=== PATIENT | male | born 1980 | race Caucasian/White ===

== ENCOUNTER 2019-08-15 08:55 | Emergency (ER) | payer BC, SELFPAY ==
[2019-08-15 09:04] VITALS: BP 160/100; PULSE 79; RESP 16; TEMP 36.6; O2SAT 95; BMI 32.5
[2019-08-15] MEDS: PROPARACAINE 0.5% OPHTH SOL 1 DROPS EYE-BOTH (09:34)
--- NOTE | 2019-08-15 09:41 | ED.EYEPROB ---
HPI - Eye Problem General Chief complaint: Eye Problems Stated complaint: R eye something in it Time Seen by Provider: 08/15/19 09:24 Source: patient Mode of arrival: Ambulatory History of Present Illness HPI Narrative: Patient is a 39-year-old male who presents with right eye pain. He said he was sitting at his desk with a fan on when he thinks something flew into at either Dust or hair. He has some irritation he went to the eye wash station he tried to wash it out at work feels irritated. He put some Visine in no vision changes. chief complaint: eye pain and eye redness Onset (ago): hour(s) Onset description: sudden Location: right eye Eye Symptoms: redness, pain and foreign body sensation Place: work Related Data Allergies Allergy/AdvReac Type Severity Reaction Status Date / Time venom-honey bee Allergy Severe Anaphylaxis Verified 08/15/19 09:04 [BEE VENOM (HONEY BEE)] Review of Systems Review of Systems Narrative: GENERAL: Denies chills,fever HEENT: See HPI Denies throat pain RESPIRATORY: Denies dyspnea, cough, wheezing CARDIOVASCULAR: Denies chest pain, palpitations GASTROINTESTINAL: Denies nausea, vomiting MUSCULOSKELETAL: Denies extremity pain, injury SKIN: No rash, no laceration, no pruritus NEUROLOGIC: Denies weakness, dizziness, headache, numbness 8 point review of systems is negative except for those stated above and HPI PFSH Medical History Healthy adult (Acute) Family History (Updated 07/31/17 @ 00:00 by Conversion Provider) Father Age: 57 Hypertension Grandfather Heart disease Mother Age: 53 Mental health problem Social History Smoking Status: Never smoker Family History Father Age: 57 Hypertension Grandfather Heart disease Mother Age: 53 Mental health problem Social History Smoking Status: Never smoker Exam Initial Vital Signs Initial Vital Signs: Vital Signs Temperature 97.9 F 08/15/19 09:04 Pulse Rate 79 08/15/19 09:04 Respiratory Rate 16 08/15/19 09:04 Blood Pressure 160/100 H 08/15/19 09:04 Pulse Oximetry 95 08/15/19 09:04 GENERAL: Well-appearing, well-nourished and in no acute distress. EYES: EOMI, PAWAN Right eye was treated with proparacaine, stained with fluorescein. No dye uptake. No foreign body. CARDIOVASCULAR: peripheral pulses in tact, cap refill <2 sec RESPIRATORY: No respiratory distress, speaks in full sentences without difficulty EXTREMITIES: Normal range of motion, no clubbing or edema. Neurovascularly intact NEUROLOGICAL: Cranial nerves II through XII grossly intact. Normal gait and speech. SKIN: Warm, dry, no petechiae, no rashes or lesions. Course Orders Ordered: Discontinued Medications Proparacaine HCl (Parcaine 0.5% Ophth Rosina) 1 drops EYE-BOTH NOW ONE Stop: 08/15/19 09:29 Last Admin: 08/15/19 09:34 Dose: 1 drop Documented by: BTONER Vital Signs Vital signs: Vital Signs - 8 hr 08/15/19 09:04 08/15/19 10:13 Temperature 97.9 F Pulse Rate 79 67 Respiratory Rate 16 16 Blood Pressure 160/100 H 149/79 H Pulse Oximetry 95 99 MDM - Eye Problem MDM Narrative Medical decision making narrative: Eye was irrigated with normal saline. No sign of corneal abrasion no obvious foreign body identified. Feels better after proparacaine and irrigation. Discharge Plan Departure Patient Disposition: Home Clinical Impression: Foreign body of right eye Qualifiers: Encounter type: initial encounter Qualified Code(s): T15.91XA - Foreign body on external eye, part unspecified, right eye, initial encounter Discharge Date/Time: 08/15/19 10:14 Instructions: DI for Foreign Body in the Eye Activity Restrictions/Additional Instructions: *You have been diagnosed with right eye *What to do: Hopefully we got out whatever was in your eye. At recommend trying not to touch it. He may need to flush it out again later. Recommend not using Visine *Continue to take medications as directed *Follow up with your primary care provider in 2-3 days *Return to ER if you should have increasing pain, visual changes swelling or any new, worsening or concerning symptoms Referrals: Francisca Terry, [Primary Care Provider] - Stand Alone Forms: Work Release Note
--- NOTE | 2019-08-15 10:02 | PC.NURSE ---
pt states sitting in front of a fan, and felt like something went into eye. pt rubbed the eye, it became more irritated.
[2019-08-15 10:13] VITALS: BP 149/79; PULSE 67; RESP 16; O2SAT 99
== END 2019-08-15 10:14 | disposition home or self-care (01) ==
PROVIDERS: Emergency Provider Emergency Medicine; PCP Family Medicine
DX: T15.91XA Foreign body on external eye, part unspecified, right eye, initial encounter (principal)
CPT/HCPCS: 99282

== ENCOUNTER 2019-11-10 14:58 | Emergency (ER) | payer BC, SELFPAY ==
[2019-11-10 15:07] VITALS: BP 138/113; PULSE 99; RESP 16; TEMP 36.9; O2SAT 97; BMI 33.3
--- NOTE | 2019-11-10 15:13 | ED.TRAUMA ---
HPI - Trauma General Chief Complaint: Trauma Stated Complaint: fell off roof Time Seen by Provider: 11/10/19 15:13 Source: patient Mode of arrival: Wheelchair Limitations: no limitations History of Present Illness HPI narrative: This is a 39-year-old male who comes to the emergency department with complaint of right foot pain. Patient states he fell off the roof of his house. He states a 1 story roof. He states he fell onto his belly and sort of slid off and onto the ground landing on both his feet. And then fell sort of sideways. He states that he did not hit his head. He states doesn't have any pain in his left foot but doesn't the right. He states sort of on the medial side there's a little bit of redness and swelling. I states it's painful to weight bear. Patient denies any numbness. No tingling. He denies any hitting his head, he denies any neck or back pain. He denies any chest pain or shortness of breath. No abdominal pain. Denies any other injuries to his lower extremities. Patient states he scraped his wrist and has a small scrape on his leg but states they're quite minor. He states his tetanus is up-to-date. He denies any medical issues. Takes no medications regularly, denies blood thinners. He has had several orthopedic surgeries as well as tubes in his ears and appendectomy. Patient defers any pain medications. States that this happened about 45 minutes prior to arrival. Related Data Previous Rx's Medication Instructions Recorded tramadol [Ultram] 50 mg PO Q6H PRN #10 tab 11/10/19 Allergies Allergy/AdvReac Type Severity Reaction Status Date / Time venom-honey bee Allergy Severe Anaphylaxis Verified 08/15/19 09:04 [BEE VENOM (HONEY BEE)] Review of Systems Review of Systems ROS Unobtainable: All systems reviewed & are unremarkable except as noted in HPI and below Patient History Medical History (Updated 11/10/19 @ 16:12 by Luisa France DO) Healthy adult (Acute) Surgical History (Updated 11/10/19 @ 15:22 by Luisa France DO) Hx of appendectomy (Acute) Social History Smoking Status: Never smoker Smoking Status: Never smoker Substance Use Type: does not use Exam Narrative Exam Narrative: GEN: Patient appears in mild distress. HEAD: No evidence of trauma, no raccoon/Diop sign. NECK: Nontender, painless range of motion, trachea midline Negative Nexus criteria, there is no mid line tenderness, distracting injury, altered mental status, neuro deficit, recent EtOH. EYES: PERRLA, EOMI ENT: External inspection normal, trachea is midline, TM's are normal no hemotypanum, Nares are clear, no septal hematoma, no dental or oral injury, airway is normal and with normal occlusion, No bony tenderness RESP: Chest is nontender and has symmetric movement, no ecchymosis, breath sounds are normal no crackles, wheezes or rales CVS: Heart sounds are normal, no murmur noted, No JVD. ABG/GI: Nontender, soft, normal bowel sounds, no distention, no organomegaly, pelvic rock is negative. NEURO: Oriented AOx3, neuro is grossly intact, sensation and motor is normal all 4 extremities moving, cranial nerves II through XII are intact, GCS is 15 PSYCH: Normal mood and affect SKIN: Intact, warm and dry, no crepitus and without decubitus BACK: No CVA tenderness, no vertebral tenderness, no step-off's, no crepitus EXT: Patient has tenderness over the 3rd and 2nd metatarsals on the right foot, he also has some moderate tenderness over the talus. No calcaneal tenderness. Patient does not have any tenderness over the 1st metatarsal. Does have some erythema and slight swelling. No ecchymosis is noted. Patient has normal sensation throughout. Dorsalis pedis is 2+ on his right foot, cap refills less than 2 seconds. Hips are nontender, no pedal edema, normal color and temperature, normal joint testing in upper and lower extremities., 2+ pulses in all four extremities Initial Vital Signs Initial Vital Signs: Vital Signs Temperature 98.4 F 11/10/19 15:07 Pulse Rate 99 H 11/10/19 15:07 Respiratory Rate 16 11/10/19 15:07 Blood Pressure 138/113 H 11/10/19 15:07 Pulse Oximetry 97 11/10/19 15:07 Scores GCS Vangie coma scale eye opening: Spontaneous Combs coma scale verbal response: Orientated Vangie coma scale motor response: Obey commands Vangie coma scale total score: 15 Course Orders Ordered: ED Orders 11/10/19 15:13 XR foot RT min 3V Stat 11/10/19 15:19 XR ankle RT min 3V Stat Discontinued Medications Ibuprofen (Advil) 800 mg PO NOW ONE Stop: 11/10/19 15:52 Last Admin: 11/10/19 15:54 Dose: 800 mg Documented by: RICHARD Vital Signs Vital signs: Vital Signs - 8 hr 11/10/19 15:07 11/10/19 15:14 11/10/19 16:17 Temperature 98.4 F 98.4 F Pulse Rate 99 H 99 H 81 Respiratory Rate 16 16 Blood Pressure 138/113 H 138/113 H Blood Pressure [Right Arm] 135/85 Pulse Oximetry 97 97 97 MDM - Trauma Imaging Data right foot xray: Radiologist's impression: [address] [address] XRay Report Signed Patient: Venu Stoddard LMR#: [id number] : 1980Acct:[id number] Age/Sex: 39 / MDate of Service: 11/10/19 Loc: ED Accession Number: [id number] Procedure: XR foot RT min 3V Ordering Provider: Luisa France D.O. PROCEDURE: XR FOOT RT MIN 3V INDICATIONS: fall from roof TECHNIQUE: 3 views of the foot were acquired. COMPARISON: [facility], , XR ANKLE RT MIN 3V, 11/10/2019, 15:21. FINDINGS: Bones: No fractures or dislocations. No suspicious bony lesions. Soft tissues: No tibiotalar joint effusion. Achilles tendon appears normal. IMPRESSION: No displaced fractures are seen. Dictated by: Brien Hearn M.D. on 11/10/2019 at 14:45 Approved by: Brien Hearn M.D. on 11/10/2019 at 14:47 right ankle xray: Radiologist's impression: [address] [address] XRay Report Signed Patient: Venu Stoddard LMR#: [id number] : 1980Acct:[id number] Age/Sex: 39 / MDate of Service: 11/10/19 Loc: ED Accession Number: [id number] Procedure: XR ankle RT min 3V Ordering Provider: Luisa France D.O. PROCEDURE: XR ANKLE RT MIN 3V INDICATIONS: pain metatarsal/talus, fell off roof. TECHNIQUE: 3 views of the ankle were acquired. COMPARISON: [facility], , XR FOOT RT MIN 3V, 11/10/2019, 15:21. FINDINGS: Bones: No fractures or dislocations. Ankle mortise is normally aligned. No suspicious bony lesions. The talar dome demonstrates no lisbeth abnormality. Soft tissues: No tibiotalar joint effusion. Achilles tendon appears normal. IMPRESSION: No displaced fractures are seen on these plain films. If there is focal tenderness, or other clinical concern for a fracture not seen on these images in this patient with a given history of trauma, please consider a dedicated CT or a short-term followup plain film series (in 1-2 weeks) for further evaluation. Dictated by: Brien Hearn M.D. on 11/10/2019 at 14:47 Approved by: Brien Hearn M.D. on 11/10/2019 at 14:48 [facility] Narrative Medical decision making narrative: Patient has no obvious fractures on x-ray. He does have some point tenderness with the mechanism that could certainly cause fracture and plan for conservative management and follow-up outpatient with repeat imaging if patient is still having discomfort. Discussed with patient he is comfortable with the plan. Plan for ortho boot, crutches as needed. Short course of pain medication and ibuprofen Tylenol with RICE treatment. Discharge Plan Departure Patient Disposition: Home Clinical Impression: Acute pain of right foot Fall Qualifiers: Encounter type: initial encounter Qualified Code(s): W19.XXXA - Unspecified fall, initial encounter Discharge Date/Time: 11/10/19 16:41 Instructions: DI for Foot Sprain Activity Restrictions/Additional Instructions: Follow-up with primary care and/or orthopedic surgery in the next 7-10 days for recheck. There is potential for you to have a fracture that is not initially visualized on x-ray, I would recommend repeat imaging in 7-10 days if your symptoms have not totally resolved. Continue with ibuprofen up to 800 mg every 8 hours and/or Tylenol up to a 1000 mg every 8 hours as needed for pain. You may take ultram 1-2 tablets for breakthrough pain as needed. This medication can make you sleepy do not drive, perform hazardous activities or make any major decisions while taking it. You may weight bear as tolerated but if your continuing to have pain continue to use crutches. Splint Care: Keep splint clean and dry. Elevated affected body part to decrease swelling. OK to use ice pack on the affected body part. Use for 15-20 minutes each time, for 5-6x per day. If you develop worsening pain, numbness, tingling, discoloration of the affected body part, loosen the splint by loosening the CEDRIC wrap, and either see your doctor for an urgent re-assessment, or return to the Emergency Department. Return to the Emergency Department for any new or worsening symptoms. Prescriptions: New tramadol [Ultram] 50 mg tablet 50 mg PO Q6H PRN (Reason: pain) Qty: 10 RF: 0 Referrals: Alyssa Burton MD [Physician] - Francisca Terry DO [Primary Care Provider] -
[2019-11-10 15:14] VITALS: BP 138/113; PULSE 99; RESP 16; TEMP 36.9; O2SAT 97
--- NOTE | 2019-11-10 15:19 | DI.RAD.S_ITS ---
PROCEDURE: XR ANKLE RT MIN 3V INDICATIONS: pain metatarsal/talus, fell off roof. TECHNIQUE: 3 views of the ankle were acquired. COMPARISON: [facility], CR, XR FOOT RT MIN 3V, 11/10/2019, 15:21. FINDINGS: Bones: No fractures or dislocations. Ankle mortise is normally aligned. No suspicious bony lesions. The talar dome demonstrates no lisbeth abnormality. Soft tissues: No tibiotalar joint effusion. Achilles tendon appears normal. IMPRESSION: No displaced fractures are seen on these plain films. If there is focal tenderness, or other clinical concern for a fracture not seen on these images in this patient with a given history of trauma, please consider a dedicated CT or a short-term followup plain film series (in 1-2 weeks) for further evaluation. Dictated by: Brien Hearn M.D. on 11/10/2019 at 14:47 Approved by: Brien Hearn M.D. on 11/10/2019 at 14:48
[2019-11-10] MEDS: IBUPROFEN 400 MG TABLET 800 MG PO (15:54)
[2019-11-10 16:17] VITALS: BP 135/85; PULSE 81; O2SAT 97
== END 2019-11-10 16:41 | disposition home or self-care (01) ==
PROVIDERS: Emergency Provider Emergency Medicine; PCP Family Medicine
DX: M79.671 Pain in right foot (principal); W13.2XXA Fall from, out of or through roof, initial encounter
CPT/HCPCS: 36415; 73610; 73630; 99283; 99284

== ENCOUNTER → 2019-11-19 15:04 | Outpatient (CLI) | payer BC, SELFPAY ==
--- NOTE | 2019-11-19 15:09 | DI.RAD.S_ITS ---
PROCEDURE: XR FOOT RT MIN 3V INDICATIONS: injury after fall TECHNIQUE: 3 views of the foot were acquired. COMPARISON: [facility], CR, XR FOOT RT MIN 3V, 11/10/2019, 15:21. FINDINGS: Bones: No definite radiographic fractures or dislocations. No suspicious bony lesions. Cortical irregularity at the first TMT joint, in particular the medial aspect is technically age-indeterminate. This could reflect prior injury, potentially with Lisfranc ligament involvement although grossly unchanged. There is anatomic alignment. Diffuse midfoot and hindfoot degenerative spurring. Small posterior calcaneal spur. Soft tissues: No tibiotalar joint effusion. Achilles tendon appears normal. IMPRESSION: No definite fracture radiographically identified. If the patient's pain or other symptoms persist, consider further evaluation with MRI. Dictated by: Jim Fernandez M.D. on 11/19/2019 at 16:25 Approved by: Jim Fernandez M.D. on 11/19/2019 at 16:32
== END ==
PROVIDERS: PCP Family Medicine; Visit Provider Family Medicine
DX: M79.671 Pain in right foot (principal); S99.921A Unspecified injury of right foot, initial encounter; W19.XXXA Unspecified fall, initial encounter
CPT/HCPCS: 73630

== ENCOUNTER → 2019-11-28 17:20 | Outpatient (CLI) | payer BC, SELFPAY ==
--- NOTE | 2019-11-28 17:22 | DI.MRI.S_ITS ---
PROCEDURE: MR FOOT RT WO CON INDICATIONS: Persistent right foot pain, possible fracture TECHNIQUE: Noncontrast sagittal T1 spin echo and T2 fast spin echo with fat saturation, long-axis T1 spin echo and T2 fast spin echo with fat saturation, short-axis T1 spin echo and T2 fast spin echo with fat saturation through the forefoot. COMPARISON: [facility], CR, XR FOOT RT MIN 3V, 11/19/2019, 15:05. FINDINGS: Image quality: Excellent. Bones and joints: There is marrow edema involving the plantar aspect of second metatarsal base with a nondisplaced fractured fragment seen in plantar aspect of second metatarsal base. Fracture line is seen extending to second TMT joint space. Mild edema involving the distal portion of medial and middle cuneiforms are seen with no discrete fracture line identified. No other area of abnormal marrow signal. The sesamoid bones appear in expected positions, without internal edema. No metatarsophalangeal joint degeneration. No intraosseous lesions. Soft tissues: Soft tissue edema over the dorsal aspect of midfoot is seen particularly over the metatarsal bones. The visualized plantar foot muscles demonstrate normal signal and bulk. Visualized flexor and extensor tendons appear intact, without tenosynovitis. The distal insertions of the peroneus brevis and longus tendons appear intact. The principal Lisfranc ligament appears intact. No soft tissue ganglion cysts or bursal fluid collections. Sagittal images demonstrate no evidence for plantar plate tears. IMPRESSION: 1. Finding is suggestive of a small nondisplaced fracture involving plantar aspect of second metatarsal base with bony contusion and adjacent medial and middle cuneiforms distally. 2. Dorsal soft tissue swelling. Extensor and flexor tendons are grossly intact. Lisfranc ligament is intact. Dictated by: Rigo Mcnamara M.D. on 11/29/2019 at 12:30 Approved by: Rigo Mcnamara M.D. on 11/29/2019 at 12:46
== END ==
PROVIDERS: PCP Family Medicine; Visit Provider Family Medicine
DX: M79.671 Pain in right foot (principal); S90.31XA Contusion of right foot, initial encounter; M79.89 Other specified soft tissue disorders
CPT/HCPCS: 73718

== ENCOUNTER 2019-12-28 08:13 | Day surgery (SDC) | payer BC, SELFPAY ==
[2019-12-20 08:53] VITALS: BMI 33.3
[2019-12-28] VITALS (10 sets, daily range): BP systolic 115–148; BP diastolic 72–106; PULSE 54–77; RESP 9–20; TEMP 35.8–36.6; O2SAT 94–100; BMI 33.3
--- NOTE | 2019-12-28 | DI.RAD.S_ITS ---
PROCEDURE: XR FOOT RT MIN 3V INDICATIONS: ORIF RIGHT FOOT TECHNIQUE: 5 views of the foot were acquired. COMPARISON: [facility], , XR FOOT RT MIN 3V, 11/19/2019, 15:05. FINDINGS: Spot fluoroscopic images demonstrating screw fixation traversing the medial cuneiform and base of the second metatarsal. Hardware appears intact. Expected intraoperative alignment. Dictated by: Jim Fernandez M.D. on 12/28/2019 at 12:41 Approved by: Jim Fernandez M.D. on 12/28/2019 at 12:43
[2019-12-28] MEDS: LACTATED RINGERS 1,000 ML 100 ML IV (08:46)
--- NOTE | 2019-12-28 10:25 | PM.PREOP ---
Pre-operative Note Interval Note History & Physical reviewed/Exam performed by Physician: Yes Changes to H&P: No
--- NOTE | 2019-12-28 10:29 | P.OP_ITS ---
Operative Date/Time/Diagnoses Date of procedure: 12/28/19 Time of procedure: 11:00 Pre-op diagnosis: Dislocation tarsometatarsal joint, right foot Post-op diagnosis: same Procedure & Clinicians Procedure: 1. ORIF tarsometatarsal joint dislocation with internal fixation CPT code 46364 right Same procedure as scheduled: Yes Indications: Patient is a 39-year-old male that had a displaced unstable Lisfranc fracture dislocation with widening of the medial cuneiform 2nd metatarsal interval and a yancy fracture. He has been indicated for operative treatment to restore alignment reduce the risk of post traumatic arthritis and chronic symptoms and dysfunction. The risks and benefits of the procedure have been discussed with the patient even opportunity to ask questions. The risks of surgery include but are not limited to infection, malunion, nonunion, persistence of pain, damage to nerves and blood vessels, posttraumatic arthritis, DVT, PE, cardiopulmonary complications and . The patient expressed a thorough understanding of the risks and benefits of surgery and has elected to proceed. Consent was signed. The patient understands that hardware is generally left in place approximately 6 months and then removed. Surgeon: Alyssa Burton Click Yes if Unassisted: Yes Anesthesia Type: General and Local Operative Notes Findings: There is a widened unstable medial cuneiform 2nd metatarsal, Lisfranc interval. First tarsometatarsal joint was stable under stress examination. The Lisfranc interval between the medial cuneiform and the 2nd metatarsal was clamped and then transfixed with a 46 mm 3.5 cortical position screw Closure Type: primary Specimen(s): none sent Prosthetic devices, grafts, tissues, transplants, or devices: Arthrex 3.5 cortical screw Estimated Blood Loss (mL): 2 Blood products transfused: none Tourniquet time (min): 25 Procedure in detail: Patient was seen in the preoperative area the site of surgery was marked informed consent confirmed. The patient was then brought back to the operating room by the anesthesia team. The patient was positioned supine on the operative table. A regional ankle block was placed by the anesthesia team for postoperative pain control. All bony prominences were well- padded. The right lower extremities prepped and draped in the standard sterile fashion. Well-padded thigh tourniquet was placed on the right lower extremity. Formal time-out procedure was performed confirming the patient side and site of surgery and presence of informed consent. The patient had appropriate preoperative antibiotics administered within the appropriate time line. Implants were in the room accounted for. Attention turned to the right foot. The C-arm was brought in and the area over the 2nd metatarsal to the tarsometatarsal joint was marked out over the dorsum of the foot. Next Esmarch was utilized for exsanguination the tourniquet was raised on the thigh to 250 mm mercury and stayed there for 25 minutes. Sharp incision was made down through the skin and subcutaneous tissue. Tenotomy scissors were used to carefully dissect and protect the superficial nerves. The interval between the he HP and EDL was developed and the entire neurovascular bundle was retracted medially. Subperiosteal dissection was taken the level of the metatarsal cuneiform joints exposing the 2nd tarsometatarsal joint Lisfranc interval and 1st tarsometatarsal joint. First tarsometatarsal joint was again tested and stable under stress examination. The Lisfranc interval was unstable and widened. Second tarsometatarsal joint was stable. Therefore decision was made for isolated fixation of the Lisfranc interval. The Lisfranc interval was debrided and reduced this was then clamped with a tenaculum. Reduction was chec ked under fluoroscopic imaging in multiple planes confirming anatomic alignment of the 2nd tarsometatarsal and Lisfranc joint. Next a K-wire for the 4 0 cannulated screw was placed as a cannulated technique for a solid screw. This was confirmed measured and then over drilled and then a 3.5 solid cortical screw was placed this was a 46 mm screw. Once this was placed the clamp was removed again fluoroscopic images in multiple planes were inspected static and under stress. This was stable fixation with excellent alignment of the tarsometatarsal joint. This point the tourniquet was released hemostasis was achieved the wound was closed in layers with 2 O Vicryl 4 0 Monocryl and 4 0 nylon suture. 6 cc of additional 0.25% Marcaine with epinephrine were injected into the incision. A sterile dressing was Xeroform gauze Webril and a posterior splint in neutral position were placed. Patient was woken from anesthesia and taken to recovery room in good condition. There no immediate complications from this procedure. All counts were correct. Complications: none Post-operative Condition: stable Disposition: PACU Plan for aftercare: The patient will be nonweightbearing on the surgical leg. They will start taking 325 mg of aspirin daily for DVT prophylaxis x6 weeks. They will follow up in clinic as scheduled. He will elevate above the heart level for the 1st 2 weeks after surgery. Will start progressively weight- bearing approximately 6- 8 weeks postop
[2019-12-28] MEDS: CEFAZOLIN 2 GM/100 ML FROZ.PIGGY IV (10:30)
[2019-12-28] MEDS: BUPIVACAINE 0.25% W/ EPI 30 ML VIAL INJ (11:18)
--- NOTE | 2019-12-28 11:19 | SUR.OPER ---
Supine on padded OR bed, head on pillow, arms secured on padded arm boards at <90 degrees abduction, legs uncrossed, safety belt at thigh, tape over blanket over lower legs.left leg secured
[2019-12-28] MEDS: fentaNYL 100 MCG/2 ML INJ IV (12:06)
[2019-12-28] MEDS: OXYCODONE/ACETAMINOPHEN 5/325 TABLET 1 TAB PO (12:22)
== END 2019-12-28 13:14 | disposition home or self-care (01) ==
LOC: OR 08:15
PROVIDERS: PCP Family Medicine; Referring Provider Orthopaedic Surgery Foot and Ankle Surgery; Visit Provider Orthopaedic Surgery Foot and Ankle Surgery
PROC: (CPT 28485; principal; 2019-12-28 10:15)
DX: S93.324A Dislocation of tarsometatarsal joint of right foot, initial encounter (principal); W13.2XXA Fall from, out of or through roof, initial encounter
CPT/HCPCS: 28615; 73630; 76000; J0690; J1100; J2405; J2704; J3010

== ENCOUNTER → 2021-04-09 10:07 | Outpatient (CLI) | payer BC, SELFPAY ==
--- NOTE | 2021-04-09 10:10 | DI.RAD.S_ITS ---
PROCEDURE: XR ANKLE RT MIN 3V INDICATIONS: right ankle pain TECHNIQUE: 3 views of the ankle were acquired. COMPARISON: [facility], , XR ANKLE RT MIN 3V, 11/10/2019, 15:21. FINDINGS: Bones: Diffuse hindfoot and midfoot osteoarthritis. No acute fracture identified. Soft tissues: Unremarkable IMPRESSION: Chronic degenerative changes as above. If the patient's pain or other symptoms persist, consider further evaluation with MRI Dictated by: Jim Fernandez M.D. on 04/09/2021 at 12:36 Approved by: Jim Fernandez M.D. on 04/09/2021 at 12:37
--- NOTE | 2021-04-09 10:10 | DI.RAD.S_ITS ---
PROCEDURE: XR FOOT RT MIN 3V INDICATIONS: right foot pain TECHNIQUE: 3 views of the foot were acquired. COMPARISON: [facility], CR, XR FOOT 3 VIEWS WEIGHT BEARING RIGHT, 06/05/2020, 10:46. [facility], CR, XR FOOT RT MIN 3V, 12/28/2019, 12:10. FINDINGS: Bones: No acute fracture identified. Mild 1st MTP osteoarthritis. Marginal lucencies projecting at the 1st and 2nd MTP joints raising the possibility of erosions. Scattered degenerative subchondral sclerosis and spurring. A screw previously transfixing the medial cuneiform and base of the 2nd metatarsal has been removed. There is dystrophic calcifications seen in this region Soft tissues: No tibiotalar joint effusion. Achilles tendon appears normal. IMPRESSION: Mild osteoarthritis and postsurgical changes as above. Unchanged alignment Marginal lucencies projecting at the 1st and 2nd MTP joint suggestive of erosions. Recommend clinical correlation and with laboratory data. Dictated by: Jim Fernandez M.D. on 04/09/2021 at 12:57 Approved by: Jim Fernandez M.D. on 04/09/2021 at 13:01
== END ==
PROVIDERS: PCP Family Medicine; Referring Provider Registered Nurse; Visit Provider Registered Nurse
DX: M25.571 Pain in right ankle and joints of right foot (principal); M79.671 Pain in right foot; M19.071 Primary osteoarthritis, right ankle and foot
CPT/HCPCS: 73610; 73630

== ENCOUNTER → 2021-04-30 09:28 | Outpatient (CLI) | payer BC, SELFPAY ==
--- NOTE | 2021-04-30 09:32 | DI.RAD.S_ITS ---
PROCEDURE: XR CERVICAL SPINE 4V OR 5V INDICATIONS: cervical pain rt/lt TECHNIQUE: 7 views of the cervical spine acquired. COMPARISON: [facility], CERVICAL SPINE 2 OR 3 VIEWS, 07/27/2016, 16:18. FINDINGS: Bones: No fractures or dislocations to the C7 level. Mild degenerative disc disease at C4-C5 and C5-C6. There is moderate to severe facet arthropathy at C6-C7 and C7-T1. Oblique images demonstrate mild foraminal stenosis at C5-C6 on the right secondary to prominent uncovertebral osteophyte. With flexion and extension, there is preserved range of motion and alignment. Soft tissues: No prevertebral soft tissue swelling. IMPRESSION: 1. Mild degenerative disc disease at C4-C5 and C5-C6. 2. Mild foraminal stenosis at C5-C6 on the right secondary to prominent uncovertebral osteophyte. 3. Preserved range of motion and alignment with flexion and extension. Dictated by: Negar Murray M.D. on 04/30/2021 at 11:32 Approved by: Negar Murray M.D. on 04/30/2021 at 11:45
== END ==
PROVIDERS: PCP Family Medicine; Referring Provider Chiropractor; Visit Provider Chiropractor
DX: M47.22 Other spondylosis with radiculopathy, cervical region (principal); M50.121 Cervical disc disorder at C4-C5 level with radiculopathy; M48.02 Spinal stenosis, cervical region
CPT/HCPCS: 72050

== ENCOUNTER → 2021-05-12 10:58 | Outpatient (CLI) | payer BC, SELFPAY ==
[2021-05-12 12:39] LABS: Alanine Aminotransferase 77 IU/L (<50); Albumin 4.6 g/dL (3.5-5.0); Albumin Globulin Ratio 1.8 (1.0-2.8); Alkaline Phosphatase 50 U/L (38-126); Aspartate Aminotransferase 42 IU/L (17-59); BUN Creatinine Ratio 11.6 (6-22); Bilirubin Total 0.3 mg/dL (0.2-1.3); Blood Urea Nitrogen 10 mg/dL (9-20); Calcium 9.4 mg/dL (8.4-10.2); Carbon Dioxide 27 mmol/L (22-32); Chloride 105 mmol/L (98-107); Estimated Glomerular Filt Rate > 60.0 mL/min (>60); Globulin 2.6 g/dL (1.7-4.1); Glucose 79 mg/dL (70-100); HEMOLYSIS < 15 (0-50); Potassium 4.2 mmol/L (3.4-5.1); Sodium 142 mmol/L (137-145); Total Protein 7.2 g/dL (6.3-8.2)
== END ==
PROVIDERS: PCP Family Medicine; Referring Provider Family Medicine; Visit Provider Family Medicine
DX: I10 Essential (primary) hypertension (principal)
CPT/HCPCS: 36415; 80053

== ENCOUNTER → 2022-03-18 10:24 | Outpatient (CLI) | payer OTHER, SELFPAY ==
[2022-03-18 11:33] LABS: Alanine Aminotransferase 61 IU/L (<50); Albumin 4.8 g/dL (3.5-5.0); Albumin Globulin Ratio 1.7 (1.0-2.8); Alkaline Phosphatase 47 U/L (38-126); Aspartate Aminotransferase 36 IU/L (17-59); BUN Creatinine Ratio 16.5 (6-22); Bilirubin Total 0.6 mg/dL (0.2-1.3); Blood Urea Nitrogen 14 mg/dL (9-20); Calcium 9.1 mg/dL (8.4-10.2); Carbon Dioxide 26 mmol/L (22-32); Chloride 103 mmol/L (98-107); Cholesterol 211 mg/dL (140-199); Estimated Glomerular Filt Rate > 60 mL/min (>60); Globulin 2.9 g/dL (1.7-4.1); Glucose 98 mg/dL (70-100); HDL Cholesterol 42 mg/dL (40-60); HEMOLYSIS < 15 (0-50); LDL Cholesterol Calculated 115 mg/dL (<100); Sodium 141 mmol/L (137-145); Total Protein 7.7 g/dL (6.3-8.2); Triglycerides 271 mg/dL (35-150)
[2022-03-28 08:08] LABS: Percent Free Testosterone 1.85 % (1.50-4.20); Testosterone Free 5.84 ng/dL (5.00-21.00); Testosterone Total 315.7 ng/dL (264.0-916.0)
== END ==
PROVIDERS: PCP Family Medicine; Referring Provider Family Medicine; Visit Provider Family Medicine
DX: E66.9 Obesity, unspecified (principal); N52.9 Male erectile dysfunction, unspecified
CPT/HCPCS: 36415; 80053; 80061; 84402; 84403

== ENCOUNTER 2022-03-25 13:30 | Emergency (ER) | payer OTHER, BC, SELFPAY ==
[2022-03-25] VITALS (8 sets, daily range): BP systolic 122–142; BP diastolic 73–95; PULSE 77–106; RESP 14–18; TEMP 36.4; O2SAT 93–97; BMI 34.3
[2022-03-25 14:56] LABS: Adenovirus Not Detected (Not Detect); B. parapertussis Not Detected (Not Detecte); Bordetella pertussis Not Detected (Not Detecte); Chlamydophila pneumoniae Not Detected (Not Detect); Coronavirus 229E Not Detected (Not Detect); Coronavirus HKU1 Not Detected (Not Detect); Coronavirus NL 63 Not Detected (Not Detect); Coronavirus OC43 Not Detected (Not Detect); Human Metapneumovirus Not Detected (Not Detect); Human Rhinovirus/Enterovirus Not Detected (Not Detect); Influenza A Not Detected (Not Detect); Influenza B Not Detected (Not Detect); Mycoplasma pneumoniae Not Detected (Not Detect); Parainfluenza Virus 1 Not Detected (Not Detect); Parainfluenza Virus 2 Not Detected (Not Detect); Parainfluenza Virus 3 Not Detected (Not Detect); Parainfluenza Virus 4 Not Detected (Not Detect); Respiratory Syncytial Virus Not Detected (Not Detect); SARS- CoV-2 Not Detected (Not Detecte)
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
[2022-03-25] MEDS: KETOROLAC 30 MG/ML VIAL 15 MG IM (15:05)
[2022-03-25] MEDS: ONDANSETRON 4 MG ODT SL (15:06)
== END 2022-03-25 15:35 | disposition home or self-care (01) ==
PROVIDERS: Emergency Medicine; Emergency Provider Nurse Practitioner Critical Care Medicine; PCP Family Medicine
DX: J06.9 Acute upper respiratory infection, unspecified (principal); R11.2 Nausea with vomiting, unspecified; R19.7 Diarrhea, unspecified
CPT/HCPCS: 87633; 96372; 99283; J1885

== ENCOUNTER → 2022-06-10 16:02 | Outpatient (CLI) | payer OTHER, SELFPAY ==
--- NOTE | 2022-06-10 16:05 | DI.MRI.S_ITS ---
PROCEDURE: MR CERVICAL SPINE WO CON INDICATIONS: Neck pain, R thumb numbness TECHNIQUE: Noncontrast sagittal T1 spin echo and T2 fast spin echo, sagittal STIR, foraminal oblique sagittal T2 fast spin echo, and axial gradient echo or T2 fast spin echo through the cervical spine. COMPARISON: None. FINDINGS: Image quality: Excellent. Alignment and Curvature: There is normal bony alignment. Bone Marrow: Marrow demonstrates normal overall signal. Spinal Cord: Visualized spinal cord has normal size and signal. No cerebellar tonsillar herniation. Regional Soft Tissues: Prevertebral and paraspinous soft tissues are normal. C2-C3: Normal appearance. C3-C4: Mild bilateral neural foraminal narrowing due to facet and uncovertebral hypertrophy. No spinal canal stenosis. C4-C5: Mild bilateral neural foraminal narrowing due to facet and uncovertebral hypertrophy C5-C6: Severe right neural foraminal narrowing and mild left neural foraminal narrowing due to facet and uncovertebral hypertrophy. No spinal canal stenosis. C6-C7: Moderate bilateral neural foraminal narrowing due to facet and uncovertebral hypertrophy. No spinal canal stenosis. C7-T1: No spinal canal or neural foraminal stenosis. IMPRESSION: Severe neural foraminal narrowing on the right at C5-C6. Correlate for any corresponding right C6 radicular symptoms. Dictated by: Bimal Booth M.D. on 06/11/2022 at 8:47 Approved by: Bimal Booth M.D. on 06/11/2022 at 8:54
== END ==
PROVIDERS: PCP Family Medicine; Referring Provider Family Medicine; Visit Provider Family Medicine
DX: M48.02 Spinal stenosis, cervical region (principal); M54.2 Cervicalgia
CPT/HCPCS: 72141

== ENCOUNTER → 2023-12-28 08:12 | Outpatient (CLI) | payer BC, SELFPAY ==
[2023-12-28 10:21] LABS: Alanine Aminotransferase 67 IU/L (<50); Albumin 4.5 g/dL (3.5-5.0); Albumin Globulin Ratio 1.7 (1.0-2.8); Alkaline Phosphatase 38 U/L (38-126); Aspartate Aminotransferase 33 IU/L (17-59); Bilirubin Total 0.5 mg/dL (0.2-1.3); Blood Urea Nitrogen 12 mg/dL (9-20); Calcium 9.3 mg/dL (8.4-10.2); Carbon Dioxide 27 mmol/L (22-32); Chloride 102 mmol/L (98-107); Cholesterol 191 mg/dL (140-199); Estimated Glomerular Filt Rate > 60 mL/min (>60); Globulin 2.7 g/dL (1.7-4.1); Glucose 88 mg/dL (70-100); HDL Cholesterol 35 mg/dL (40-60); HEMOLYSIS < 15 (0-50); LDL Cholesterol Calculated 109 mg/dL (<100); Potassium 4.4 mmol/L (3.4-5.1); Sodium 138 mmol/L (137-145); Total Protein 7.2 g/dL (6.3-8.2); Triglycerides 235 mg/dL (35-150)
== END ==
PROVIDERS: PCP Family Medicine; Referring Provider Family Medicine; Visit Provider Family Medicine
DX: I10 Essential (primary) hypertension (principal); E78.5 Hyperlipidemia, unspecified; E66.9 Obesity, unspecified
CPT/HCPCS: 36415; 80053; 80061

== ENCOUNTER → 2024-08-17 12:51 | Outpatient (CLI) | payer BC, SELFPAY ==
--- NOTE | 2024-08-17 12:53 | DI.RAD.S_ITS ---
PROCEDURE: XR CHEST 2V INDICATIONS: cough x 2 weeks, self reports hemotysis TECHNIQUE: 2 views of the chest were acquired. COMPARISON: None. FINDINGS: Surgical changes and devices: None. Lungs and pleura: Lungs are clear. No pleural effusions or pneumothorax. Mediastinum: Mediastinal contours are normal. Heart size is normal. Bones and chest wall: No suspicious bony abnormalities. Soft tissues appear unremarkable. IMPRESSION: No acute cardiopulmonary abnormality is seen. Dictated by: Doni Nguyen M.D. on 08/17/2024 at 13:01 Approved by: Doni Nguyen M.D. on 08/17/2024 at 13:09
== END ==
PROVIDERS: PCP Family Medicine; Referring Provider Physician Assistant Medical; Visit Provider Physician Assistant Medical
DX: R05.9 Cough, unspecified (principal)
CPT/HCPCS: 71046

== ENCOUNTER → 2024-12-19 10:03 | Outpatient (CLI) | payer BC, SELFPAY ==
--- NOTE | 2024-12-19 10:04 | DI.RAD.S_ITS ---
PROCEDURE: XR HIP W PEL IF DONE RT 2V INDICATIONS: Right Hip Pain with fall TECHNIQUE: AP pelvis with lateral view(s) of the right hip(s). COMPARISON: None. FINDINGS: Bones: No fractures or dislocations. Pelvic ring appears intact. No suspicious bony lesions. Soft tissues: The visualized bowel gas pattern is normal. No suspicious soft tissue calcifications. IMPRESSION: No visualized acute fracture or dislocation. However, if clinical concern and/or pain persist, short interval imaging followup in 7-10 days is recommended, as occult injury cannot be definitively excluded. Dictated by: Calli Hernandez M.D. on 12/19/2024 at 21:17 Approved by: Calli Hernandez M.D. on 12/19/2024 at 21:18
== END ==
PROVIDERS: PCP Family Medicine; Referring Provider Family Medicine; Visit Provider Family Medicine
DX: M25.551 Pain in right hip (principal)
CPT/HCPCS: 73502

== ENCOUNTER → 2024-12-25 08:20 | Outpatient (CLI) | payer BC, SELFPAY ==
[2024-12-25 08:48] LABS: Hematocrit 43.8 % (41-53); Mean Corpuscular HGB Conc 34.2 % (30-36); Mean Corpuscular Hemoglobin 31.1 PG (26-34); Mean Corpuscular Volume 90.8 fL (80-100); Platelet Count 281 X10^3/uL (150-400); Red Blood Cell Count 4.83 X10^6/uL (4.5-5.9); Red Cell Distribution Width 13.7 % (11.6-14.8); White Blood Cell Count 7.1 X10^3/uL (4.5-11.0)
[2024-12-25 09:06] LABS: Alanine Aminotransferase 68 IU/L (<50); Albumin 4.7 g/dL (3.5-5.0); Albumin Globulin Ratio 1.9 (1.0-2.8); Alkaline Phosphatase 45 U/L (38-126); Aspartate Aminotransferase 44 IU/L (17-59); Bilirubin Total 0.5 mg/dL (0.2-1.3); Blood Urea Nitrogen 13 mg/dL (9-20); Calcium 9.2 mg/dL (8.4-10.2); Carbon Dioxide 23 mmol/L (22-32); Chloride 106 mmol/L (98-107); Cholesterol 205 mg/dL (140-199); Estimated Glomerular Filt Rate > 60 mL/min (>60); Globulin 2.5 g/dL (1.7-4.1); Glucose 100 mg/dL (70-100); HDL Cholesterol 40 mg/dL (40-60); HEMOLYSIS < 15 (0-50); LDL Cholesterol Calculated 122 mg/dL (<100); Potassium 4.6 mmol/L (3.4-5.1); Sodium 139 mmol/L (137-145); Total Protein 7.2 g/dL (6.3-8.2); Triglycerides 216 mg/dL (35-150)
[2024-12-25 09:35] LABS: Creatinine Urine Random 218.72 mg/dL
[2024-12-25 09:40] LABS: Microalbumin Urine Random 0.7 mg/dL (0-1.6)
== END ==
PROVIDERS: PCP Family Medicine; Referring Provider Family Medicine; Visit Provider Family Medicine
DX: I10 Essential (primary) hypertension (principal); E78.5 Hyperlipidemia, unspecified
CPT/HCPCS: 36415; 80053; 80061; 82043; 82570; 85027

== ENCOUNTER → 2025-09-23 09:07 | Outpatient (CLI) | payer OTHER, SELFPAY ==
--- NOTE | 2025-09-23 09:08 | DI.RAD.S_ITS ---
PROCEDURE: XR CHEST 2V INDICATIONS: Cough TECHNIQUE: 2 views of the chest were acquired. COMPARISON: [facility], CR, XR CHEST 2V, 08/17/2024, 12:50. FINDINGS: Surgical changes and devices: None. Lungs and pleura: Lungs are clear. No pleural effusions or pneumothorax. Mediastinum: Mediastinal contours are normal. Heart size is normal. Bones and chest wall: No suspicious bony abnormalities. Soft tissues appear unremarkable. IMPRESSION: No acute cardiopulmonary abnormality is seen. Dictated by: Deepika Franco [facility] Interpreted: Rigo Mcnamara MD on 09/23/2025 at 9:58 Transcribed by: JENY on 09/23/2025 at 9:58 Approved by: Rigo Mcnamara M.D. on 09/23/2025 at 17:01
== END ==
PROVIDERS: PCP Family Medicine; Referring Provider Nurse Practitioner Family; Visit Provider Nurse Practitioner Family
DX: R05.9 Cough, unspecified (principal)
CPT/HCPCS: 71046